=== PATIENT | female | born 1955 | race Caucasian/White ===

== ENCOUNTER 2017-01-10 08:23 | Outpatient (CLI) | payer OTHER ==
[2017-01-10 09:30] LABS: eGFR (African) > 60; eGFR (Non-African) > 60
== END 2017-01-10 08:24 ==
LOC: LAB 08:23
PROVIDERS: ATTEND Family Medicine
DX: E11.9 Type 2 diabetes mellitus without complications (principal); E78.2 Mixed hyperlipidemia
CPT/HCPCS: 36415; 80053; 80061; 82043; 83036

== ENCOUNTER 2017-04-12 08:17 | Outpatient (CLI) | payer OTHER | END 2017-04-12 08:20 | LOC: LAB 08:17 | PROVIDERS: ATTEND Family Medicine | DX: E11.9 Type 2 diabetes mellitus without complications (principal) | CPT/HCPCS: 36415; 83036 ==

== ENCOUNTER 2017-07-11 09:52 | Outpatient (CLI) | payer OTHER | END 2017-07-11 09:53 | LOC: LAB 09:52 | PROVIDERS: ATTEND Family Medicine | DX: E11.9 Type 2 diabetes mellitus without complications (principal) | CPT/HCPCS: 36415; 83036 ==

== ENCOUNTER 2017-10-09 08:47 | Outpatient (CLI) | payer OTHER | END 2017-10-09 08:50 | LOC: LAB 08:47 | PROVIDERS: ATTEND Family Medicine | DX: E11.9 Type 2 diabetes mellitus without complications (principal) | CPT/HCPCS: 36415; 83036 ==

== ENCOUNTER 2018-05-10 07:52 | Outpatient (CLI) | payer OTHER | END 2018-05-10 08:08 | LOC: LAB 07:52 | PROVIDERS: ATTEND Family Medicine | DX: E11.9 Type 2 diabetes mellitus without complications (principal) | CPT/HCPCS: 36415; 83036 ==

== ENCOUNTER 2018-07-27 16:30 | Emergency (ER) | payer OTHER ==
--- NOTE | 2018-07-27 16:43 | ED Physician Documentation ---
General Adult - HISTORIAN Historian: patient - HPI Stated Complaint: forehead laceration Chief Complaint: General Adult Onset: minutes Timing: still present Severity: mild Further Comments: yes (Pt is a 63 yo female who fell while roller skating and sustained a laceration to the center of her upper forehead. This was a low- speed injury according to . Pt did not lose consciousness and was not dazed by the fall. She has no neck pain. Tetanus is utd.) - ROS CONST: no problems EYES/ENT: none CVS/RESP: none GI/: none MS/SKIN/LYMPH: other (forehead laceration; R ankle soreness, abrasion) NEURO/PSYCH: denies: headache - PAST HX Past History: other (GERD, DM, HTN, HLD, Depression) Allergies/Adverse Reactions: Allergies Allergy/AdvReac Type Severity Reaction Status Date / Time diphenhydramine HCl Allergy Anaphylaxis Unverified 09/28/14 14:29 [From Benadryl] - SOCIAL HX Smoking History: non-smoker Alcohol Use: rarely - FAMILY HX Family History: No - REVIEWED ASSESSMENTS Nursing Assessment Reviewed: Yes Vitals Reviewed: Yes Procedures Wound Location: head (upper mid forehead) Wound Length: 2.5 cm Wound's Depth, Shape: superficial Wound Explored: clean Irrigated w/ Saline (ccs): 10 Betadine Prep?: No (Fady) Wound Debrided: minimal Wound Repaired With: steri-strips, Dermabond General Adult Physical Exam - PHYSICAL EXAM GENERAL APPEARANCE: mild distress EENT: eye inspection normal, ENT inspection normal, pharynx normal NECK: normal inspection, supple RESPIRATORY: no resp distress, chest non-tender, breath sounds normal CVS: reg rate & rhythm, heart sounds normal ABDOMEN: soft, no organomegaly, normal bowel sounds BACK: normal inspection, no CVA tenderness SKIN: other (linear vertical laceration central upper forehead, superficial) EXTREMITIES: other (L knee abrasion; FROM; no pain with weight bearing) NEURO: oriented X3, CN's nml as tested, motor nml, sensation nml, mood/affect nml Discharge Clincal Impression: minor forehead laceration, R knee strain Referrals: Pia Cabello MD [Primary Care Provider] - Condition: Stable Disposition: 01 HOME, SELF-CARE Decision to Admit: NO Decision Time: 16:58
[2018-07-27 17:51] VITALS: BP 125/71
== END 2018-07-27 17:40 | disposition home or self-care (01) ==
LOC: ED 16:30
DX: S01.81XA Laceration without foreign body of other part of head, initial encounter (principal); S39.012A Strain of muscle, fascia and tendon of lower back, initial encounter; V00.128A Other non-in-line roller-skating accident, initial encounter; Y93.51 Activity, roller skating (inline) and skateboarding; Y92.9 Unspecified place or not applicable
CPT/HCPCS: 12011; 99282

== ENCOUNTER 2019-04-02 08:38 | Outpatient (CLI) | payer OTHER | END 2019-04-02 08:43 | LOC: LAB 08:38 | PROVIDERS: ATTEND Family Medicine | DX: E11.9 Type 2 diabetes mellitus without complications (principal) | CPT/HCPCS: 36415; 83036 ==